=== PATIENT | female | born 1955 | race Caucasian/White ===

== ENCOUNTER 2016-10-28 07:38 | Outpatient (CLI) | payer OTHER ==
[2016-10-28 07:55] LABS: BASOPHILS % 0.4 (0.0-1.5); EOSINOPHILS % 1.4 % (0.0-6.8); LYMPHOCYTES # 1.5 # k/uL (0.6-4.0); MEAN CORPUSCULAR HEMOGLOBIN 29.7 pg (28.0-34.0); MONOCYTES # 0.2 # k/uL (0.0-0.9); MONOCYTES % 2.7 % (0.0-11.0); NEUTROPHILS # 5.4 # k/uL (1.4-7.7)
[2016-10-28 08:34] LABS: eGFR (African) > 60; eGFR (Non-African) > 60
== END 2016-10-28 07:40 ==
LOC: LAB 07:38
PROVIDERS: ATTEND Family Medicine
DX: G47.00 Insomnia, unspecified (principal); R53.83 Other fatigue; R63.5 Abnormal weight gain; Z11.59 Encounter for screening for other viral diseases
CPT/HCPCS: 36415; 80053; 80061; 83036; 84443; 85025; 86803